=== PATIENT | male | born 1995 | race Caucasian/White ===

== ENCOUNTER 2017-03-21 02:37 | Emergency (ER) | payer SELFPAY ==
[2017-03-21 02:40] VITALS: TEMP 97.5
[2017-03-21] MEDS ORDERED: PROTONIX 40MG T40 MG PO (04:39)
[2017-03-21 05:00] VITALS: BP 118/60; PULSE 64
== END 2017-03-21 05:00 | disposition home or self-care (01) ==
LOC: COL.ER 02:37
DX: K21.9 Gastro-esophageal reflux disease without esophagitis (principal)